=== PATIENT | male | born 1940 | race Caucasian/White ===

== ENCOUNTER 2018-04-28 08:53 | Day surgery (SDC) | payer MEDICARE, OTHER ==
[2018-04-28] MEDS: PROPARACAINE 0.5% OPHTH SOL 15ML OS (07:00)
[2018-04-28] MEDS: OFLOXACIN 0.3 % (OCUFLOX) OPTH SOL 5ML OS (09:45)
[2018-04-28] MEDS: TROPICAMIDE 1% OPHTH SOLN 2ML OS (09:45)
[2018-04-28] MEDS: PHENYLEPHRINE 2.5% OPHTH SOL 2ML OS (09:45)
[2018-04-28 09:58] LABS: BEDSIDE GLUCOSE 173 MG/DL (83-110)
[2018-04-28] MEDS: DUOVISC (0.50ML VISCOAT/0.55ML PROVISC) OPHTH KIT As Ordered (12:01)
[2018-04-28] MEDS: CEFUROXIME 1MG/0.1ML INTRACAMERAL INJ As Ordered (12:01)
[2018-04-28] MEDS: LIDOCAINE 0.75%/EPINEPHRINE 0.025% IN BSS 1ML SYR INTRACAMERAL (OR ONLY) As Ordered (12:01)
[2018-04-28] MEDS: POVIDONE-IODINE 5% OPHTH PREP SOL 30ML As Ordered (12:01)
[2018-04-28] MEDS: BALANCED SALT IRRIGATION SOLUTION 500ML BAG (FOR OR EYE MACHINE) As Ordered (12:01)
[2018-04-28] MEDS ORDERED: MIDAZOLAM INJ 2 MG/2 ML VIAL (J2250) As Ordered (12:10)
[2018-04-28] MEDS ORDERED: fentaNYL 100 MCG/2 ML INJECTION (J3010) As Ordered (12:10)
== END 2018-04-28 13:15 | disposition home or self-care (01) ==
LOC: M SDC 13:15
DX: H25.12 Age-related nuclear cataract, left eye (principal); I48.91 Unspecified atrial fibrillation; I10 Essential (primary) hypertension; E11.9 Type 2 diabetes mellitus without complications; Z98.61 Coronary angioplasty status; I25.10 Atherosclerotic heart disease of native coronary artery without angina pectoris; E78.5 Hyperlipidemia, unspecified; Z79.84 Long term (current) use of oral hypoglycemic drugs; Z79.899 Other long term (current) drug therapy
CPT/HCPCS: 66984

== ENCOUNTER 2018-05-12 06:48 | Day surgery (SDC) | payer MEDICARE, OTHER ==
[2018-05-12] MEDS ORDERED: fentaNYL 100 MCG/2 ML INJECTION (J3010) As Ordered (07:04)
[2018-05-12] MEDS ORDERED: MIDAZOLAM INJ 2 MG/2 ML VIAL (J2250) As Ordered (07:05)
[2018-05-12] MEDS: PROPARACAINE 0.5% OPHTH SOL 15ML OD (07:23)
[2018-05-12] MEDS: TROPICAMIDE 1% OPHTH SOLN 2ML OD (07:25)
[2018-05-12] MEDS: OFLOXACIN 0.3 % (OCUFLOX) OPTH SOL 5ML OD (07:25)
[2018-05-12] MEDS: PHENYLEPHRINE 2.5% OPHTH SOL 2ML OD (07:25)
[2018-05-12 07:33] LABS: BEDSIDE GLUCOSE 185 MG/DL (83-110)
[2018-05-12] MEDS: POVIDONE-IODINE 5% OPHTH PREP SOL 30ML As Ordered (08:53)
[2018-05-12] MEDS: BALANCED SALT IRRIGATION SOLUTION 500ML BAG (FOR OR EYE MACHINE) As Ordered (08:53)
[2018-05-12] MEDS: DUOVISC (0.50ML VISCOAT/0.55ML PROVISC) OPHTH KIT As Ordered (08:54)
[2018-05-12] MEDS: CEFUROXIME 1MG/0.1ML INTRACAMERAL INJ As Ordered (08:54)
[2018-05-12] MEDS: LIDOCAINE 0.75%/EPINEPHRINE 0.025% IN BSS 1ML SYR INTRACAMERAL (OR ONLY) As Ordered (08:54)
== END 2018-05-12 09:32 | disposition home or self-care (01) ==
LOC: M SDC 06:48
DX: H25.11 Age-related nuclear cataract, right eye (principal); I10 Essential (primary) hypertension; E11.40 Type 2 diabetes mellitus with diabetic neuropathy, unspecified; E78.5 Hyperlipidemia, unspecified; M12.9 Arthropathy, unspecified; I25.10 Atherosclerotic heart disease of native coronary artery without angina pectoris; I48.0 Paroxysmal atrial fibrillation; N40.0 Benign prostatic hyperplasia without lower urinary tract symptoms; M48.062 Spinal stenosis, lumbar region with neurogenic claudication; M48.02 Spinal stenosis, cervical region; N52.9 Male erectile dysfunction, unspecified; N20.0 Calculus of kidney; Z88.5 Allergy status to narcotic agent; Z79.899 Other long term (current) drug therapy; Z79.82 Long term (current) use of aspirin; Z79.01 Long term (current) use of anticoagulants; Z95.5 Presence of coronary angioplasty implant and graft; Z92.3 Personal history of irradiation; Z96.651 Presence of right artificial knee joint
CPT/HCPCS: 66984

== ENCOUNTER → 2020-06-12 | Outpatient (REF) | payer MEDICARE, OTHER ==
[~2020-06-12] MED LIST: AMLO1TAB24; ASPI81TA26 PO; ATOR80TA59 PO; CHLO25TA PO; FLOM0.4C39 PO; IRON27TA2 PO; JANU25TA PO; JARD1TAB; LOSA100T8 PO; MEMA1TAB3; METF10004 PO; OZEM2INJ; PANT40TA29; PIOG1TAB36 PO; TAMS1CAP17; XARE20TA PO
== END ==
LOC: M LAB REF 17:24
PROVIDERS: ATTEND Physician Assistant
DX: C44.311 Basal cell carcinoma of skin of nose (principal)
CPT/HCPCS: 11102; 17000; 17003; 88305; G0463

== ENCOUNTER → 2020-06-14 | Outpatient (CLI) | payer MEDICARE, OTHER | LOC: M LABSMTC 10:37 | PROVIDERS: ATTEND Anesthesiology | DX: Z01.812 Encounter for preprocedural laboratory examination (principal); Z20.828 Contact with and (suspected) exposure to other viral communicable diseases | CPT/HCPCS: C9803; U0003 ==

== ENCOUNTER 2020-06-19 08:25 | Day surgery (SDC) | payer MEDICARE, OTHER ==
[~2020-06-19] VITALS: Ht 180.3 cm; Wt 99.8 kg
[~2020-06-19 08:25] MED LIST changes: +NS 1,000 ML IV ONE
--- NOTE | 2020-06-19 11:14 | ROOR ---
Patient Name: Zac Lepe Procedure Date: 06/19/2020 10:56 AM Date of : 1940 Age: 80 Room: [facility] Gender: Male Note Status: Finalized Procedure: Upper Endoscopy + Biopsies Indications: Iron deficiency anemia Providers: Kb Hatch MD Referring MD: DONNA SCHUSTER MD Requesting Provider: Medicines: Monitored Anesthesia Care Complications: No immediate complications. Procedure: Pre-Anesthesia Assessment: - The heart rate, respiratory rate, oxygen saturations, blood pressure, adequacy of pulmonary ventilation, and response to care were monitored throughout the procedure. The Endoscope was introduced through the mouth, and advanced to the second part of duodenum. The upper GI endoscopy was accomplished without difficulty. The patient tolerated the procedure well. Findings: The Z-line was variable and was found 45 cm from the incisors. Multiple biopsies were obtained with cold forceps for evaluation to rule out Davis's Esophagus randomly at the gastroesophageal junction. A small hiatal hernia was present. Diffuse mild inflammation characterized by congestion (edema) and erythema was found on the greater curvature of the stomach. Biopsies were taken with a cold forceps for Helicobacter pylori testing. The exam of the duodenum was otherwise normal. Impression: - Z-line variable, 45 cm from the incisors. - Small hiatal hernia. - Mucosal changes suspicious for gastritis. Biopsied. - Multiple biopsies were obtained at the gastroesophageal junction. - The examination was otherwise normal. Recommendation: - Patient has a contact number available for emergencies. The signs and symptoms of potential delayed complications were discussed with the patient. Return to normal activities tomorrow. Written discharge instructions were provided to the patient. - High fiber diet. - Discharge patient to home. - Follow an antireflux regimen. - Continue present medications. - Await pathology results. - Telephone GI clinic for pathology results in 1 week. - Return to referring physician. - The findings and recommendations were discussed with the patient. Kb Hatch MD Kb Hatch MD 06/19/2020 11:13:57 AM Electronically signed by Kb Hatch MD Number of Addenda: 0 Note Initiated On: 06/19/2020 10:56 AM Estimated Blood Loss: Estimated blood loss: none.
--- NOTE | 2020-06-19 11:47 | ROOR ---
Patient Name: Zac Lepe Procedure Date: 06/19/2020 10:58 AM Date of : 1940 Age: 80 Room: [facility] Gender: Male Note Status: Finalized Procedure: Total Colonoscopy to Cecum + Cold Snare Polypectomy + Hemoclips Indications: Iron deficiency anemia Providers: Kb Hatch MD Referring MD: DONNA SCHUSTER MD Requesting Provider: Medicines: Monitored Anesthesia Care Complications: No immediate complications. Procedure: Pre-Anesthesia Assessment: - The heart rate, respiratory rate, oxygen saturations, blood pressure, adequacy of pulmonary ventilation, and response to care were monitored throughout the procedure. The Colonoscope was introduced through the anus and advanced to the cecum, identified by appendiceal orifice and ileocecal valve. The colonoscopy was performed without difficulty. The patient tolerated the procedure well. The quality of the bowel preparation was good. Findings: The perianal and digital rectal examinations were normal. Non-bleeding internal hemorrhoids were found during retroflexion. The hemorrhoids were small and Grade I (internal hemorrhoids that do not prolapse). Multiple small and large-mouthed diverticula were found in the recto-sigmoid colon, sigmoid colon and descending colon. A large polyp was found in the mid ascending colon. The polyp was sessile. The polyp was removed with a cold snare. Resection and retrieval were complete. To prevent bleeding after the polypectomy, three hemostatic clips were successfully placed (MR conditional). There was no bleeding at the end of the procedure. The exam was otherwise without abnormality on direct and retroflexion views. Impression: - Non-bleeding internal hemorrhoids. - Diverticulosis in the recto-sigmoid colon, in the sigmoid colon and in the descending colon. - One large polyp in the mid ascending colon, removed with a cold snare. Resected and retrieved. Clips (MR conditional) were placed. - The examination was otherwise normal on direct and retroflexion views. - The exam was otherwise normal to the cecum. Recommendation: - Patient has a contact number available for emergencies. The signs and symptoms of potential delayed complications were discussed with the patient. Return to normal activities tomorrow. Written discharge instructions were provided to the patient. - High fiber diet. - Discharge patient to home. - Continue present medications. - Await pathology results. - Telephone GI clinic for pathology results in 1 week. - Repeat colonoscopy for surveillance based on pathology results. - Return to referring physician. - Resume Xarelto (rivaroxaban) at prior dose tomorrow. - The findings and recommendations were discussed with the patient. Kb Hatch MD Kb Hatch MD 06/19/2020 11:46:36 AM Electronically signed by Kb Hatch MD Number of Addenda: 0 Note Initiated On: 06/19/2020 10:58 AM Estimated Blood Loss: Estimated blood loss: none.
[2020-06-19 12:15] VITALS: BP 161/80
== END 2020-06-19 12:31 | disposition home or self-care (01) ==
LOC: M OPP 08:25
PROVIDERS: ATTEND Internal Medicine Gastroenterology
DX: D12.2 Benign neoplasm of ascending colon (principal); K64.0 First degree hemorrhoids; K57.30 Diverticulosis of large intestine without perforation or abscess without bleeding; D50.9 Iron deficiency anemia, unspecified; K22.8 Other specified diseases of esophagus; K44.9 Diaphragmatic hernia without obstruction or gangrene; K31.89 Other diseases of stomach and duodenum; E11.9 Type 2 diabetes mellitus without complications; I48.91 Unspecified atrial fibrillation; Z79.82 Long term (current) use of aspirin; Z79.84 Long term (current) use of oral hypoglycemic drugs; Z79.899 Other long term (current) drug therapy; Z88.5 Allergy status to narcotic agent; Z95.0 Presence of cardiac pacemaker; Z95.5 Presence of coronary angioplasty implant and graft

== ENCOUNTER → 2023-02-25 | Outpatient (REF) | payer MEDICARE, OTHER ==
[~2023-02-25] MED LIST changes: -NS 1,000 ML IV ONE
== END ==
LOC: M SFHCDERM 15:49
PROVIDERS: ATTEND Physician Assistant
DX: C44.01 Basal cell carcinoma of skin of lip (principal)

== ENCOUNTER → 2023-06-16 | Outpatient (CLI) | payer MEDICARE, OTHER ==
[~2023-06-16] MED LIST changes: +SEMA0.257 SQ
== END ==
LOC: M ONCR 13:45
PROVIDERS: ATTEND General Practice
DX: C44.319 Basal cell carcinoma of skin of other parts of face (principal); Z71.2 Person consulting for explanation of examination or test findings; Z79.82 Long term (current) use of aspirin; Z79.84 Long term (current) use of oral hypoglycemic drugs; Z79.85 Long-term (current) use of injectable non-insulin antidiabetic drugs; Z79.899 Other long term (current) drug therapy; Z80.1 Family history of malignant neoplasm of trachea, bronchus and lung; Z80.49 Family history of malignant neoplasm of other genital organs; Z88.5 Allergy status to narcotic agent; Z92.3 Personal history of irradiation

== ENCOUNTER 2023-06-21 13:27 | Outpatient (RCR) | payer MEDICARE, OTHER | END 2023-06-22 | LOC: M ONCR 13:27 | PROVIDERS: ATTEND General Practice | DX: C44.310 Basal cell carcinoma of skin of unspecified parts of face (principal) ==

== ENCOUNTER → 2023-07-22 | Outpatient (RCR) | payer MEDICARE, OTHER | LOC: M ONCR 06-23 11:49 | PROVIDERS: ATTEND General Practice | DX: Z51.0 Encounter for antineoplastic radiation therapy (principal); C44.310 Basal cell carcinoma of skin of unspecified parts of face ==

== ENCOUNTER 2023-07-23 08:24 | Outpatient (RCR) | payer MEDICARE, OTHER | END 2023-08-22 | LOC: M ONCR 08:24 | PROVIDERS: ATTEND General Practice | DX: Z51.0 Encounter for antineoplastic radiation therapy (principal); C44.310 Basal cell carcinoma of skin of unspecified parts of face ==

== ENCOUNTER → 2023-09-23 | Outpatient (CLI) | payer MEDICARE, OTHER | LOC: M ONCR 09:53 | PROVIDERS: ATTEND General Practice | DX: C44.310 Basal cell carcinoma of skin of unspecified parts of face (principal); Z92.3 Personal history of irradiation ==

== ENCOUNTER → 2023-12-09 | Outpatient (REF) | payer MEDICARE, OTHER | LOC: M SFHCDERM 15:55 | PROVIDERS: ATTEND Physician Assistant | DX: D18.01 Hemangioma of skin and subcutaneous tissue (principal); L57.0 Actinic keratosis ==

== ENCOUNTER 2024-10-06 11:05 | Emergency (ER) | payer MEDICARE, OTHER ==
[~2024-10-06] VITALS: Ht 177.8 cm; Wt 62.3 kg
[2024-10-06 11:24] VITALS: BP 105/54; TEMP 97; O2SAT 99
== END 2024-10-06 11:40 | disposition left against medical advice (07) ==
LOC: M ED 11:05
DX: Z53.21 Procedure and treatment not carried out due to patient leaving prior to being seen by health care provider (principal)